=== PATIENT | female | born 1960 | race Caucasian/White ===

== ENCOUNTER 2017-05-18 05:08 | Observation (INO) | payer OTHER ==
[~2017-05-18] VITALS: Ht 162.6 cm; Wt 81.3 kg
[~2017-05-18 05:08] MED LIST: AMLO5TAB2 PO; LISI20TA3 PO
[2017-05-18] MEDS ORDERED: CHLORHEXIDINE GLUCONATE 2 % 1 PACK (2 CLOTHS) TOPICAL PRN (05:30)
[2017-05-18] MEDS ORDERED: HEPARIN SODIUM - SQ 10,000 UNITS/ML VIAL SQ SCH (05:30)
[2017-05-18] MEDS ORDERED: METOPROLOL TARTRATE 25 MG TAB PO PRN (05:30)
[2017-05-18] MEDS ORDERED: SODIUM CHLORID 0.9% 500 ML IV PRN (05:30)
[2017-05-18] MEDS ORDERED: LACTATED RINGER'S 1000 ML IV PRN (05:30)
[2017-05-18] MEDS ORDERED: ceFAZolin 2 GM PREMIX 50 ML IV SCH (05:30)
[2017-05-18] MEDS ORDERED: INSULIN HUMAN REGULAR 1,000 UNITS/10 ML VIAL SQ PRN (05:30)
[2017-05-18] MEDS ORDERED: POVIDONE IODINE 5% (ANTISEPSIS KIT) 4 APPLICATIONS EACH NARE PRN (05:30)
[2017-05-18 06:12] VITALS: BP 145/79; PULSE 82; RESP 20; TEMP 97.9; O2SAT 93
[2017-05-18] MEDS ORDERED: SUGAMMADEX SODIUM 200 MG/2 ML VIAL IV PUSH ONE ×2 (07:14)
[2017-05-18] MEDS ORDERED: ACETAMINOPHEN 1000 MG/100 ML VIAL IV ONE (07:14)
[2017-05-18] MEDS ORDERED: FAMOTIDINE 20 MG/2 ML VIAL ONE (07:15)
[2017-05-18] MEDS ORDERED: HYDROmorphone HCL PF 2 MG/ML VIAL ONE (07:15)
[2017-05-18] MEDS ORDERED: DEXAMETHASONE SOD PHOS 4 MG/ML VIAL ONE (07:15)
[2017-05-18] MEDS ORDERED: ARTIFICIAL TEARS OPTH OINT 3.5 APPLIC/3.5 GM TUBO ONE (07:15)
[2017-05-18] MEDS ORDERED: FERRIC SUBSULFATE 8 ML TOP SOLN TOPICAL ONE (08:25)
[2017-05-18] MEDS ORDERED: LIDOCAINE 1%/EPINEPHrine 1:100,000 SOLN 30 ML VIAL INFIL ONE (08:26)
[2017-05-18] MEDS ORDERED: METHYLENE BLUE 10 MG/ML VIAL OTHER ONE (10:18)
[2017-05-18] MEDS ORDERED: ceFAZolin INJ 1,000 MG VIAL IV ONE (10:22)
[2017-05-18] MEDS ORDERED: SILVER NITR/POTASSIUM NITRATE APPLICATORS TOPICAL ONE (10:54)
[2017-05-18] MEDS ORDERED: SODIUM CHLORIDE 0.9% FLUSH 10 ML FLUSH IV FLUSH PRN (11:15)
[2017-05-18] MEDS ORDERED: oxyCODONE/ACETAMINOPHEN 5 MG/325 MG TAB PO PRN ×2 (11:15)
[2017-05-18] MEDS ORDERED: LORazepam 0.5 MG TAB PO PRN (11:15)
[2017-05-18] MEDS ORDERED: diphenhydrAMINE HCL 25 MG CAP PO PRN (11:15)
[2017-05-18] MEDS ORDERED: DO NOT ADM ANY ANTICOAGULANT DRUGS PRN (11:18)
[2017-05-18] MEDS ORDERED: MIDAZOLAM HCL 2 MG/2 ML VIAL ONE (11:23)
[2017-05-18] MEDS ORDERED: fentaNYL CITRATE 250 MCG/5 ML AMP ONE (11:23)
[2017-05-18] MEDS: D5-1/2 NS + KCL 20 MEQ INJ 1,000 ML IV SCH ×2 (11:40→19:13)
[2017-05-18] MEDS ORDERED: PROPOFOL 200 MG/20 ML AMP IV ONE (12:00)
[2017-05-18] MEDS ORDERED: ONDANSETRON HCL 4 MG/2 ML VIAL IV PUSH ONE (12:00)
[2017-05-18] MEDS ORDERED: NORMOSOL R INJ 1,000 ML IV ONE (12:00)
[2017-05-18] MEDS ORDERED: KETOROLAC TROMETHAMINE 30 MG/ML (IVP) VIAL IV PUSH ONE (12:00)
[2017-05-18] MEDS ORDERED: VECURONIUM BROMIDE 10 MG VIAL IV ONE (12:00)
[2017-05-18] MEDS ORDERED: *morphine SULFATE 8 MG/ML PERIprocedure ONLY ONE (12:54)
--- NOTE | 2017-05-18 16:36 | MP ---
cc: YANDEL RENDON MD, RIZALINA M.D. MOLPUS, KELLY L. MD DATE OF SURGERY 05/18/2017 PREOPERATIVE DIAGNOSIS Postmenopausal bleeding, thickened endometrial stripe, complex atypical hyperplasia, complex pelvic mass. POSTOPERATIVE DIAGNOSIS Postmenopausal bleeding, thickened endometrial stripe, complex atypical hyperplasia, complex pelvic mass. Endometrial polyp. PROCEDURE Robotic-assisted laparoscopic hysterectomy, bilateral salpingo-oophorectomy. SURGEON Sade Whiteside MD SITE MEDICAL DIRECTOR [place] respiratory therapy assistant. ANESTHESIA General endotracheal anesthesia. ESTIMATED BLOOD LOSS 100 cc. IV FLUIDS 1100 cc. URINE OUTPUT 400 cc. HISTORY A 56-year-old female with postmenopausal bleeding. Imaging showed a thickened endometrial stripe 27 mm. Biopsy showed complex atypical hyperplasia. She also had a complex pelvic mass, possibly bilateral masses, the largest one of which was approximately 6-7 cm, complex in nature. No evidence of adenopathy, ascites or other abnormalities. She was counseled regarding these findings and presents now for surgical management. FINDINGS Uterine cavity sounded to 13 cm. The uterus symmetrically enlarged. The left tube and ovary grossly appeared normal. The right ovary was enlarged approximately 7 cm complex smooth-walled mass, intact capsule, mobile. No significant adhesions. There is no appreciably enlarged retroperitoneal lymph nodes in the pelvis or the para-aortic region. Peritoneal surfaces were smooth. No peritoneal implants. Large and small bowel adjacent mesentery, omentum all grossly appeared normal. Preliminary pathology from the specimens removed showed a large benign-appearing polyp from the endometrium. No evidence of a malignancy. 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 The patient was identified by sight recognition, hospital ID bracelet and the proposed procedure was reviewed and confirmed. She was carefully positioned in padded Don stirrups. Her arms were padded and secured to the sides. She was further secured to the operating table with egg crate padding and tape in a cross chest over the shoulder fashion. All sites noted be properly aligned with no malalignments or pressure points. She was prepped in sterile fashion, draped below the waist, placed in high lithotomy position, cervix was grasped. Inspection of the cervix appeared firm and prominent, although, was symmetrical and there was no overt nodularity. It had an unusual consistency so several biopsies were taken from the cervix and sent for frozen section analysis. Topical Monsel's solution was used for hemostasis. The uterus was sounded. The cervix was dilated. A large VCare manipulator was inserted and secured usual fashion. Banda catheter placed in the bladder. She was returned to low lithotomy position. Change of sterile gloves was undertaken. We completed draping in anticipation of laparoscopy, confirmed that an orogastric tube was in the stomach on suction. With manual elevation of the abdominal wall and direct laparoscopic visualization 5 mm cannula introduced in the left upper quadrant in an atraumatic fashion. Carbon dioxide gas was insufflated. Under laparoscopic visualization a 12-mm cannula was placed in midline above the umbilicus, 8 mm cannula placed in the right upper quadrant, left lateral quadrant. The original 5 exchanged for an 8-mm cannula. She was placed in steep Trendelenburg position. Peritoneal washings were obtained for cytology. Small bowel was folded back on its mesenteric root, anatomy was surveyed with findings as described above. Three Ray-Mac sponges were placed across the root of the small bowel mesentery. Pathology came back from the cervix biopsy showing benign appearing tissue. No evidence of malignancy. Robotic system brought into the operative field, attached in the usual fashion. Monopolar scissors, fenestrated bipolar forceps and ProGrasp manipulators placed in arms #1, 2 and 3 respectively and I took my place at the surgeon's console. Right round ligament isolated, cauterized, transected. The anterior and posterior leafs of the broad ligament were opened. Right ureter was identified. The right infundibulopelvic ligament was isolated to the level of the pelvic brim where it was cauterized and transected. Posterior peritoneum opened along the right side of the uterus and cervix and the right vesicouterine peritoneum was dissected off the lower uterine segment and cervix. Right uterine vessels were skeletonized, cauterized. Attention was directed toward the left side where the left round ligament was isolated, cauterized, transected. The anterior and posterior leafs of the broad ligament were opened. The left ureter was identified. Left infundibulopelvic ligament was isolated. The intervening peritoneum was opened. The infundibulopelvic ligament was isolated to the level of the pelvic brim where it was cauterized and transected. Posterior peritoneum opened along the left side of the uterus and cervix and the left vesicouterine peritoneum dissected off the lower uterine segment and cervix. The left uterine vessels were skeletonized. Left uterine vessels were now transected. The cardinal, paracervical and uterosacral ligaments were isolated, cauterized and transected along the left side and then attention was redirected toward the right side where the cardinal, paracervical and uterosacral ligaments were isolated, cauterized and transected. Colpotomy was performed the cervix from the vagina and the specimen was able to be withdrawn transvaginally which included uterus, cervix and tubes and ovaries and the pneumooccluder balloon was placed in the vagina to maintain pneumoperitoneum. Instruments one and three exchanged for needle drivers as 0 Vicryl suture was introduced. Vaginal cuff was closed starting at the left corner, full-thickness closure including the posterior peritoneum and edge of the uterosacral ligament, tied via instrument tie. The suture was held on countertraction as a running continuous full-thickness closure was carried across the vaginal apex to the contralateral corner where it was similarly fixed, secured tied. The needle was cut and removed. Pelvis was thoroughly irrigated. Small bleeders rendered hemostatic with bipolar cautery. The integrity of bladder was confirmed by filling the bladder with saline dyed with methylene blue which distended nicely under pressure. There were no areas of blue to suggest thinning of the bladder and no extravasation of dye. Good margin between the vaginal cuff suture line and the edge of the bladder and the bladder was drained. Good peristalsis of the ureters bilaterally. Hemostatic agent Tiffany was placed across the vaginal cuff and pelvic sidewalls. Pathology came back showing benign findings. Therefore, it was felt that all reasonable surgical objectives had been completed. Robotic instruments were removed. Robotic system disengaged from the operative field. I reentered the bedside under sterile condition. Each of the three Ray-Mac sponges that had been placed were removed. There were removed individually and inspected and noted to be removed in their entirety. Visual inspection of the peritoneal cavity revealed no remaining foreign objects in the peritoneal cavity. Preliminary counts were correct. 12 mm fascial defect was closed with interrupted 0 Vicryl sutures using a needle pass apparatus tied securely which rendered the fascia completely airtight and hemostatic. The remaining cannulas were withdrawn. Carbon dioxide gas was removed from the peritoneal cavity. 3-0 Vicryl subcutaneous, 3-0 Vicryl subcuticular and Steri-Strips were used to close these incisions. She was returned to dorsal lithotomy position. Pelvic exam confirmed there were no remaining foreign objects in the vagina. The vaginal cuff well supported, hemostatic. No vaginal lacerations. Superficial mucosal irritation at the introitus rendered hemostatic with topical silver nitrate. Final counts were correct. She was returned to dorsal supine position and was pending reversal of anesthesia when I left the operating room to precede her to the Post Anesthesia Care Unit. MD GREYSON Gracia/KAISER /11:46 AM /4:16 PM
[2017-05-18 16:48] VITALS: BP 123/71; PULSE 78; RESP 20; TEMP 97.6; O2SAT 93
[2017-05-18] MEDS: KETOROLAC TROMETHAMINE 30 MG/ML (IVP) VIAL IVP SCH ×2 (16:55→23:28)
[2017-05-18] MEDS: ONDANSETRON HCL 4 MG/2 ML VIAL IVP PRN (17:07)
[2017-05-18 20:00] VITALS: BP 132/89; PULSE 79; RESP 16; TEMP 96.5; O2SAT 98
[2017-05-18] MEDS: SODIUM CHLORIDE 0.9% FLUSH 10 ML FLUSH IV FLUSH SCH (21:00)
[2017-05-18] MEDS ORDERED: METOCLOPRAMIDE HCL 10 MG/2 ML VIAL IV ONE (21:00)
[2017-05-18] MEDS ORDERED: METOCLOPRAMIDE HCL 10 MG/2 ML VIAL IV PRN (21:15)
[2017-05-19] VITALS: BP 107/69; PULSE 74; RESP 16; TEMP 96.8; O2SAT 95
[2017-05-19] MEDS: D5-1/2 NS + KCL 20 MEQ INJ 1,000 ML IV SCH ×2 (03:32→11:00)
[2017-05-19 04:00] VITALS: BP 105/67; PULSE 79; RESP 16; TEMP 96.8; O2SAT 93
[2017-05-19] MEDS: KETOROLAC TROMETHAMINE 30 MG/ML (IVP) VIAL IVP SCH ×2 (05:43→11:11)
[2017-05-19] MEDS: ONDANSETRON HCL 4 MG/2 ML VIAL IVP PRN (05:44)
[2017-05-19 08:00] VITALS: BP 102/62; PULSE 69; RESP 20; TEMP 96.4; O2SAT 93
[2017-05-19] MEDS ORDERED: OXYC1TAB63 PO (08:51)
[2017-05-19] MEDS ORDERED: HYDROCHLOROTHIAZIDE 25 MG TAB PO SCH (09:00)
[2017-05-19] MEDS ORDERED: amLODIPine BESYLATE 5 MG TAB PO SCH (09:00)
[2017-05-19] MEDS: SODIUM CHLORIDE 0.9% FLUSH 10 ML FLUSH IV FLUSH SCH (09:00)
[2017-05-19] MEDS ORDERED: LISINOPRIL 20 MG TAB PO SCH (09:00)
[2017-05-19] MEDS ORDERED: NON-FORMULARY DRUG (Lisinopril-Hctz 1 TAB) PO SCH (09:00)
[2017-05-19 09:51] LABS: AUTOMATED NEUTROPHIL # 9.3 TH/MM3 (1.8-7.7); BASOPHIL % 0.2 % (0.0-2.0); EOSINOPHIL % 0.1 % (0.0-4.0); HEMATOCRIT 40.2 % (35.0-46.0); HEMO FLAGS DIFF FINAL; LYMPH % 8.6 % (9.0-44.0); MEAN CELL VOLUME 88.4 FL (80.0-100.0); MEAN CORPUSCULAR HGB CONC 33.9 % (32.0-36.0); MONO % 8.4 % (0.0-8.0); NEUT % 82.7 % (16.0-70.0); PLATELET COUNT 302 TH/MM3 (150-450); RED BLOOD COUNT 4.55 MIL/MM3 (4.00-5.30); RED CELL DISTRIBUTION WIDTH 13.8 % (11.6-17.2); WHITE BLOOD COUNT 11.3 TH/MM3 (4.0-11.0)
[2017-05-19 10:14] LABS: BICARBONATE 25.1 MEQ/L (21.0-32.0); POTASSIUM 3.8 MEQ/L (3.5-5.1)
[2017-05-19 12:00] VITALS: BP 99/59; PULSE 72; RESP 20; TEMP 98.1; O2SAT 94
--- NOTE | 2017-05-21 18:57 | MD ---
cc: YANDEL RENDON MD, RIZALINA M.D. MOLPUS,QUE [place] MD ADMISSION DATE: 05/18/2017 DISCHARGE DATE: 05/19/2017 PROCEDURE 05/18/2017 robotic-assisted laparoscopic hysterectomy and bilateral salpingo-oophorectomy (including resection of 7 cm right complex ovarian mass). 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 HOSPITAL COURSE Did well during first 24 hours of surgery, tolerating oral intake. Banda catheter out, voiding satisfactorily. Hemodynamically stable. Nausea is improved as anesthesia medicine clears her system. Ins and outs 3646/1600. Labs still pending at the time of this dictation. Vital signs: Afebrile, pulse 74-86, respirations 16-20, blood pressure 105 to 132 over 68 to 89. O2 saturations greater than 95% while awake, 93% while asleep. Alert and oriented times three. PHYSICAL EXAMINATION GENERAL: Alert and oriented times three in no acute distress. LUNGS: Clear to auscultation except for mild basilar rales. CARDIOVASCULAR: Regular rate and rhythm. ABDOMEN: Soft. Incisions clean and dry. GYNECOLOGIC: No bleeding. EXTREMITIES: Nontender. ASSESSMENT Postop day #1 doing well in early postop. Preliminary findings, preliminary pathology discussed reviewed. Activities restrictions again covered. Questions were answered. She expressed good understanding. PLAN Anticipate she will meet criteria for discharge to home, therefore anticipate discharge to home. She is to call our office to ensure she has a followup scheduled within two weeks. She is to resume prior medications. She has a prescription for Percocet. And she has our office number to contact us should there be any questions or problems between now the time of scheduled followup. MD GREYSON Gracia/ANNY /8:59 AM /6:53 PM
== END 2017-05-19 14:07 | disposition home or self-care (01) ==
LOC: HSDC 05:08 → HSDI 11:07 → HOCA 13:27
PROVIDERS: ADMIT Obstetrics & Gynecology Gynecologic Oncology; ATTEND Obstetrics & Gynecology Gynecologic Oncology
PROC: 0UTC7ZZ Resection of Cervix, Via Natural or Artificial Opening (ICD-10-PCS; 2017-05-18)
PROC: 0UT2FZZ Resection of Bilateral Ovaries, Via Natural or Artificial Opening With Percutaneous Endoscopic Assistance (ICD-10-PCS; 2017-05-18)
PROC: 0UT7FZZ Resection of Bilateral Fallopian Tubes, Via Natural or Artificial Opening With Percutaneous Endoscopic Assistance (ICD-10-PCS; 2017-05-18)
PROC: 8E0W8CZ Robotic Assisted Procedure of Trunk Region, Via Natural or Artificial Opening Endoscopic (ICD-10-PCS; 2017-05-18)
PROC: 0UT9FZZ Resection of Uterus, Via Natural or Artificial Opening With Percutaneous Endoscopic Assistance (ICD-10-PCS; principal; 2017-05-18 07:38)
DX: N85.01 Benign endometrial hyperplasia (principal); N88.8 Other specified noninflammatory disorders of cervix uteri; N95.0 Postmenopausal bleeding
CPT/HCPCS: 00840; 58552; 80048; 85025; 86850; 86900; 86901; 88305; 88307; 88331; 88332; 94150; G0378; J0131; J0690; J1100; J1170; J1644; J1885; J2250; J2270; J2405; J2765; J3010; J3480; J7120; S2900

== ENCOUNTER 2017-10-10 19:20 | Emergency (ER) | payer OTHER ==
[~2017-10-10] VITALS: Ht 162.6 cm; Wt 80.0 kg
[~2017-10-10 19:20] MED LIST changes: +OXYC1TAB63 PO
[2017-10-10 19:23] VITALS: BP 147/99; PULSE 90; RESP 16; TEMP 97.6; O2SAT 96
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
[2017-10-10 20:21] LABS: BICARBONATE 23.1 MEQ/L (21.0-32.0); POTASSIUM 3.5 MEQ/L (3.5-5.1)
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
[2017-10-10] MEDS ORDERED: IOHEXOL 350 MG/ML 10 ML VIAL (for RAD DIAG) IVCONTRAST ONE (21:28)
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
== END 2017-10-10 22:37 | disposition home or self-care (01) ==
LOC: NEPD 19:20
DX: S93.402A Sprain of unspecified ligament of left ankle, initial encounter (principal); I31.3 Pericardial effusion (noninflammatory); I10 Essential (primary) hypertension; V18.4XXA Pedal cycle driver injured in noncollision transport accident in traffic accident, initial encounter; Z79.899 Other long term (current) drug therapy
CPT/HCPCS: 71010; 71260; 73610; 80048; 99285; Q9967